=== PATIENT | male | born 1975 | race Hispanic/Latino ===

== ENCOUNTER 2023-08-21 10:31 | Emergency (ER) | payer OTHER ==
[~2023-08-21] VITALS: Ht 175.3 cm; Wt 83.9 kg
[2023-08-21] MEDS ORDERED: LACTATED RINGERS 1000ML 1,000 ML IV ONE (11:30)
[2023-08-21] MEDS ORDERED: MORPHINE 2 MG SYG IVP ONE (11:30)
[2023-08-21] MEDS ORDERED: ONDANSETRON 4MG INJ IVP ONE (11:30)
[2023-08-21 11:33] LABS: BASOPHILS # (AUTO) 0.07 K/uL (0.00-0.20); BASOPHILS % (AUTO) 0.5 % (0.0-5.0); EOSINOPHILS # (AUTO) 0.08 K/uL (0.00-0.70); EOSINOPHILS % (AUTO) 0.5 % (0.0-8.0); HEMATOCRIT 49.2 % (42-54); IMMATURE GRANULOCYTE ABSOLUTE 0.06 K/uL (0-1); LYMPHOCYTES # (AUTO) 1.8 K/uL (1.0-4.8); LYMPHOCYTES % (AUTO) 11.5 % (21.0-51.0); MEAN CORPUSCULAR HEMOGLOBIN 28.9 pg (27.0-33.0); MEAN CORPUSCULAR HGB CONC 33.9 g/dL (32.0-36.0); MEAN CORPUSCULAR VOLUME 85.3 fL (79-99); MONOCYTES # (AUTO) 1.2 K/uL (0.1-1.0); MONOCYTES % (AUTO) 7.8 % (3.0-13.0); NEUTROPHILS # (AUTO) 12.2 K/uL (1.8-7.7); NEUTROPHILS % (AUTO) 79.3 % (40.0-77.0); PLATELET COUNT (AUTO) 494 K/uL (130-400); RED BLOOD CELL COUNT(AUTO) 5.77 MIL/uL (4.50-6.20); RED CELL DISTRIBUTION WIDTH 13.1 % (11.0-15.5); WHITE BLOOD COUNT (AUTO) 15.3 K/uL (4.8-10.8)
[2023-08-21 11:42] LABS: POTASSIUM 3.7 mmol/L (3.5-5.1)
[2023-08-21 11:45] LABS: ALBUMIN 3.1 g/dL (3.5-5.0); BILIRUBIN,TOTAL 0.4 mg/dL (0.2-1.0); TOTAL PROTEIN, SERUM 8.2 g/dL (6.0-8.3)
[2023-08-21 12:10] LABS: APPEARANCE,URINE CLEAR (CLEAR); BILIRUBIN,URINE NEGATIVE (NEGATIVE); COLOR,URINE YELLOW (YELLOW); GLUCOSE, URINE (UA) NEGATIVE (NEGATIVE); KETONES,URINE NEGATIVE (NEGATIVE); LEUKOCYTE ESTERASE ,URINE NEGATIVE Leu/uL (NEGATIVE); NITRATE,URINE NEGATIVE (NEGATIVE); OCCULT BLOOD,URINE NEGATIVE (NEGATIVE); PH,URINE 5.5 (5.0-8.0); PROTEIN,URINE 20 mg/dL (NEGATIVE)
[2023-08-21 12:27] LABS: ADD UA MICROSCOPIC YES
[2023-08-21 12:29] LABS: MUCUS,URINE RARE LPF (None Seen); WBC,URINE 0-1 /HPF (0-1)
[2023-08-21 14:18] VITALS: BP 122/80; PULSE 71; RESP 18; O2SAT 99
[2023-08-21] MEDS ORDERED: AMOX-427 PO (14:19)
[2023-08-21] MEDS ORDERED: CIPR750T17 PO (14:19)
[2023-08-21] MEDS ORDERED: TAMS-1 PO (14:19)
== END 2023-08-21 14:34 | disposition home or self-care (01) ==
LOC: EDH 10:31
DX: N20.0 Calculus of kidney (principal); K57.92 Diverticulitis of intestine, part unspecified, without perforation or abscess without bleeding
CPT/HCPCS: 99285; 74176; 96374; 96361; 96375; 84484; 80053; 85025; 81001; 36415; J7120; J2270; J2405

== ENCOUNTER 2023-08-29 09:44 | Emergency (ER) | payer OTHER ==
[~2023-08-29] VITALS: Ht 175.3 cm; Wt 83.0 kg
[~2023-08-29 09:44] MED LIST: AMOX-427 PO; CIPR750T17 PO; TAMS-1 PO
[2023-08-29] MEDS ORDERED: ONDANSETRON 4MG INJ IVP ONE (10:30)
[2023-08-29] MEDS ORDERED: 0.9%NACL 1000ML 1,000 ML IV ONE (10:30)
[2023-08-29] MEDS ORDERED: MORPHINE 2 MG SYG IVP ONE (10:30)
[2023-08-29 10:32] LABS: BASOPHILS # (AUTO) 0.05 K/uL (0.00-0.20); BASOPHILS % (AUTO) 0.7 % (0.0-5.0); EOSINOPHILS # (AUTO) 0.21 K/uL (0.00-0.70); EOSINOPHILS % (AUTO) 2.8 % (0.0-8.0); IMMATURE GRANULOCYTE ABSOLUTE 0.03 K/uL (0-1); LYMPHOCYTES % (AUTO) 27.1 % (21.0-51.0); MEAN CORPUSCULAR HEMOGLOBIN 28.4 pg (27.0-33.0); MEAN CORPUSCULAR HGB CONC 33.3 g/dL (32.0-36.0); MEAN CORPUSCULAR VOLUME 85.5 fL (79-99); MONOCYTES # (AUTO) 0.6 K/uL (0.1-1.0); MONOCYTES % (AUTO) 8.5 % (3.0-13.0); NEUTROPHILS # (AUTO) 4.5 K/uL (1.8-7.7); NEUTROPHILS % (AUTO) 60.5 % (40.0-77.0); PLATELET COUNT (AUTO) 591 K/uL (130-400); RED BLOOD CELL COUNT(AUTO) 5.38 MIL/uL (4.50-6.20); RED CELL DISTRIBUTION WIDTH 12.9 % (11.0-15.5); WHITE BLOOD COUNT (AUTO) 7.5 K/uL (4.8-10.8)
[2023-08-29 10:38] LABS: CREATININE 1.1 mg/dL (0.5-1.5); POTASSIUM 3.5 mmol/L (3.5-5.1)
[2023-08-29 10:39] LABS: APPEARANCE,URINE CLEAR (CLEAR); BILIRUBIN,URINE NEGATIVE (NEGATIVE); COLOR,URINE LIGHT-YELLOW (YELLOW); GLUCOSE, URINE (UA) NEGATIVE (NEGATIVE); KETONES,URINE NEGATIVE (NEGATIVE); LEUKOCYTE ESTERASE ,URINE NEGATIVE Leu/uL (NEGATIVE); NITRATE,URINE NEGATIVE (NEGATIVE); OCCULT BLOOD,URINE NEGATIVE (NEGATIVE); PROTEIN,URINE NEGATIVE (NEGATIVE); UROBILINOGEN,URINE 0.2 mg/dL (0.2-1.0)
[2023-08-29 10:43] LABS: ADD UA MICROSCOPIC NO
[2023-08-29 10:43] LABS: ALBUMIN 2.9 g/dL (3.5-5.0); BILIRUBIN,TOTAL 0.2 mg/dL (0.2-1.0); TOTAL PROTEIN, SERUM 7.7 g/dL (6.0-8.3)
[2023-08-29] MEDS ORDERED: HYOS0.124 SL (14:23)
[2023-08-29 16:35] VITALS: BP 137/77; PULSE 77; RESP 18; O2SAT 99
== END 2023-08-29 16:34 | disposition home or self-care (01) ==
LOC: EDH 09:44
DX: K57.32 Diverticulitis of large intestine without perforation or abscess without bleeding (principal); N20.0 Calculus of kidney
CPT/HCPCS: 99285; 74176; 96374; 96361; 96375; 82150; 82550; 80053; 83690; 85025; 81003; 36415; J2270; J7030; J2405

== ENCOUNTER 2023-09-11 14:21 | Emergency (ER) | payer OTHER ==
[~2023-09-11] VITALS: Ht 175.3 cm; Wt 81.6 kg
[~2023-09-11 14:21] MED LIST changes: +HYOS0.124 SL
[2023-09-11 15:50] LABS: BASOPHILS # (AUTO) 0.03 K/uL (0.00-0.20); BASOPHILS % (AUTO) 0.2 % (0.0-5.0); EOSINOPHILS # (AUTO) 0.01 K/uL (0.00-0.70); EOSINOPHILS % (AUTO) 0.1 % (0.0-8.0); HEMATOCRIT 50.1 % (42-54); IMMATURE GRANULOCYTE ABSOLUTE 0.07 K/uL (0-1); LYMPHOCYTES # (AUTO) 0.8 K/uL (1.0-4.8); LYMPHOCYTES % (AUTO) 5.3 % (21.0-51.0); MEAN CORPUSCULAR HEMOGLOBIN 28.1 pg (27.0-33.0); MEAN CORPUSCULAR HGB CONC 32.9 g/dL (32.0-36.0); MEAN CORPUSCULAR VOLUME 85.3 fL (79-99); MONOCYTES # (AUTO) 0.8 K/uL (0.1-1.0); MONOCYTES % (AUTO) 4.9 % (3.0-13.0); NEUTROPHILS # (AUTO) 13.8 K/uL (1.8-7.7); PLATELET COUNT (AUTO) 468 K/uL (130-400); RED BLOOD CELL COUNT(AUTO) 5.87 MIL/uL (4.50-6.20); RED CELL DISTRIBUTION WIDTH 13.1 % (11.0-15.5); WHITE BLOOD COUNT (AUTO) 15.5 K/uL (4.8-10.8)
[2023-09-11 15:54] LABS: APPEARANCE,URINE CLOUDY (CLEAR); BILIRUBIN,URINE NEGATIVE (NEGATIVE); COLOR,URINE YELLOW (YELLOW); GLUCOSE, URINE (UA) NEGATIVE (NEGATIVE); KETONES,URINE NEGATIVE (NEGATIVE); LEUKOCYTE ESTERASE ,URINE 500 Leu/uL (NEGATIVE); NITRATE,URINE NEGATIVE (NEGATIVE); OCCULT BLOOD,URINE MODERATE (NEGATIVE); PROTEIN,URINE 300 mg/dL (NEGATIVE)
[2023-09-11 15:56] LABS: ADD UA MICROSCOPIC YES
[2023-09-11 15:59] LABS: CREATININE 1.3 mg/dL (0.5-1.5); POTASSIUM 3.8 mmol/L (3.5-5.1)
[2023-09-11] MEDS ORDERED: KETOROLAC 30MG VIAL (30MG/ML) IVP ONE (16:00)
[2023-09-11] MEDS ORDERED: 0.9%NACL 1000ML 1,000 ML IV ONE (16:00)
[2023-09-11 16:04] LABS: ALBUMIN 2.9 g/dL (3.5-5.0); BILIRUBIN,TOTAL 0.7 mg/dL (0.2-1.0); TOTAL PROTEIN, SERUM 8.8 g/dL (6.0-8.3)
[2023-09-11 16:06] LABS: BACTERIA,URINE RARE /HPF (None Seen); MUCUS,URINE FEW LPF (None Seen); NON-SQUAMOUS EPITHELIAL CELL 2 /HPF (0-2); OTHER CASTS, URINE 4 /LPF (None Seen); RBC,URINE 26-50 /HPF (0-1); SQUAMOUS EPITHELIAL CELL,UR RARE /HPF (0-2); UNCLASSIFIED CRYSTAL 8 /HPF (None Seen); WBC CLUMP RARE /HPF (0-1); WBC,URINE 51-100 /HPF (0-1)
[2023-09-11] MEDS ORDERED: METR-172 PO (17:33)
[2023-09-11] MEDS ORDERED: LEVO-70 PO (17:33)
[2023-09-11 17:40] VITALS: BP 136/78; PULSE 78; RESP 18; O2SAT 99
== END 2023-09-11 17:50 | disposition home or self-care (01) ==
LOC: EDH 14:21
DX: K57.32 Diverticulitis of large intestine without perforation or abscess without bleeding (principal); N20.0 Calculus of kidney
CPT/HCPCS: 99285; 74176; 96374; 96361; 80053; 85025; 87088; 81001; 36415; J7030; J1885